=== PATIENT | female | born 1945 | race Caucasian/White ===

== ENCOUNTER → 2021-05-11 10:04 | Outpatient (BNVA) | payer MEDICARE, SELFPAY | PROVIDERS: PCP Internal Medicine; Visit Provider Nurse Practitioner Family | DX: R25.1 Tremor, unspecified (principal); G47.33 Obstructive sleep apnea (adult) (pediatric) | CPT/HCPCS: 99212 ==

== ENCOUNTER → 2021-11-09 10:57 | Outpatient (BNVA) | payer MEDICARE, SELFPAY | PROVIDERS: PCP Internal Medicine; Visit Provider Nurse Practitioner Family | DX: G47.33 Obstructive sleep apnea (adult) (pediatric) (principal); R25.1 Tremor, unspecified; Z79.899 Other long term (current) drug therapy; Z99.89 Dependence on other enabling machines and devices | CPT/HCPCS: 99212 ==

== ENCOUNTER → 2022-04-14 09:27 | Outpatient (BNVA) | payer MEDICARE, SELFPAY | PROVIDERS: PCP Internal Medicine; Visit Provider Nurse Practitioner Family | DX: R25.1 Tremor, unspecified (principal); G47.33 Obstructive sleep apnea (adult) (pediatric) | CPT/HCPCS: 99212 ==

== ENCOUNTER → 2022-07-26 09:34 | Outpatient (BNVA) | payer MEDICARE, SELFPAY | PROVIDERS: PCP Internal Medicine; Visit Provider Nurse Practitioner Family | DX: G47.33 Obstructive sleep apnea (adult) (pediatric) (principal); R25.1 Tremor, unspecified | CPT/HCPCS: 99212 ==

== ENCOUNTER 2022-11-09 09:40 | Outpatient (AMB) | payer MEDICARE, SELFPAY ==
[2022-11-09 09:43] VITALS: BP 138/70; PULSE 88; O2SAT 94; BMI 29.8
--- NOTE | 2022-11-09 09:43 | A.OFFVIS_ITS ---
Intake Vital Signs 11/09/22 09:43 Height 5 ft 2 in Weight 163 lb BMI 29.8 BP 138/70 Blood Pressure Location Rt brachial Position Sitting Pulse 88 Pulse Source Pulse Oximeter Pulse Oximetry (%) 94 Oxygen Delivery Method Room Air Intake Visit Reasons: 4m tremor/KWADWO - Confirmed Intake Note: Pt presents as a 4 month f/u tremor/kwadwo. pt states she has questions about medications. 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 Allergies erythromycin base [From Erythrocin] Allergy (Mild, Verified 11/09/22 09:45) Rash nickel Allergy (Unknown, Verified 11/09/22 09:45) Rash bupropion [From Wellbutrin] Adverse Reaction (Mild, Verified 11/09/22 09:45) lip swelling Medication List - Last Reconciled 11/09/22 by ROLA Tapia carbidopa-levodopa 25-100 mg 2 tabs PO TID estradiol 0.01%(0.1mg/gram) grams vaginal losartan 100 mg PO DAILY multivitamin 1 tab PO DAILY paroxetine HCl 40 mg PO DAILY primidone 150 mg (3 x 50 mg) PO BID 90 days ropinirole 0.25 mg PO TID 30 days simvastatin 40 mg PO BEDTIME sitagliptin phos-metformin 50-1,000 mg (Janumet) 1 tab PO BID valacyclovir 500 mg PO BID PRN vitamin B complex 1 tab PO DAILY HPI HPI Comments History of Present Illness Details 77-yr-old female presents for f/u visit. Pt denies any significant interval medical history changes. Pt reports that she was scheduled for DBS in Sep, however this has been put on hold after she had a consult w/ Dr Herve Mitchell at [facility]. She states he suspects she may have early signs of PD, and thus started her on CD-LD in addition to her usual doses of Ropinirole and Primidone. She started w/ CD-LD 25-100mg 1/2 tab tid and has increased to 1.5 tabs tid, she will increase to 2 tabs TID tomorrow. She states on CD-LD, she is a bit better- in terms of tremor. However, she has had some orthostatic lightheadedness and increased daytime sleepiness. She can fall asleep whenever inactive. She has been complaint w/ her CPAP, with usage > 4hrs at 97%, average hrs [id number] 28min, residual AHI 0.3/hr. [facility] Medical History Anxiety Depression Diabetes HTN (hypertension) Kidney stones Surgical History H/O: hysterectomy Family History Father Diabetes Mother Heart disease Social History (Updated 11/09/22 @ 09:48 by Liz Jones CMA) Alcohol intake: never Patient Tobacco Use Status: Never used Tobacco Review of Systems Const All systems reviewed & are unremarkable except as noted in HPI and below Physical Exam Vital Signs: Last Vital Signs Pulse 88 11/09/22 09:43 BP 138/70 11/09/22 09:43 Pulse Ox 94 11/09/22 09:43 Oxygen Delivery Method Room Air 11/09/22 09:43 BMI result Body Mass Index 29.8 Const General: cooperative and no acute distress Resp Effort & Inspection: normal respiratory effort and able to speak in complete sentences Neuro Other: Cognition: A&O x's 3 Expression: Intact Voice: Soft, tremor Tremor: RUE rest tremor, BUE R > L postural and kinetic tremor Tone: None Dyskinesia: None FFM: Ok Foot taps: Slightly decreased on right Gait: Decreased right arm swing, stride ok, steady gait Psych: Pleasant, cooperative Assessment & Plan Assessment & Plan (1) Obstructive sleep apnea: Code(s): G47.33 - Obstructive sleep apnea (adult) (pediatric) (2) Tremor: Comment: voice and BUE tremor. Code(s): R25.1 - Tremor, unspecified Plan For tremor: Call placed to Dr Herve Mitchell at [facility]- to discuss trying to reduce Ropinirole dose in hopes this offsets increased daytime sleepiness despite optimal CPAP use- awaiting call back. For now- Continue CD-LD per Dr Mitchell. Continue Ropinirole 0.25mg tid. Continue Primidone 50mg- 3 tabs BID. Continue to use adaptive strategies: SteadyMouse, covered cups. For KWADWO: Continue CPAP 8 cmH2O nightly > 4 hours, as pt continues to have good reduction in residual AHI. Clean CPAP machine and supplies routinely. Change CPAP supplies routinely. Pt to contact us or respiratory company with any questions or concerns. f/u in 3 months or sooner prn Coding Level of Care Code Est Pt Level 4 (55738) Diagnoses Obstructive sleep apnea G47.33 Tremor R25.1
== END 2022-11-09 10:32 | disposition home or self-care (01) ==
PROVIDERS: Visit Provider Nurse Practitioner Family
DX: G47.33 Obstructive sleep apnea (adult) (pediatric) (principal); R25.1 Tremor, unspecified
CPT/HCPCS: 99214

== ENCOUNTER → 2022-11-09 09:40 | Outpatient (BNVA) | payer MEDICARE, SELFPAY | PROVIDERS: Visit Provider Nurse Practitioner Family | DX: G47.33 Obstructive sleep apnea (adult) (pediatric) (principal); R25.1 Tremor, unspecified | CPT/HCPCS: 99212 ==

== ENCOUNTER 2023-02-22 09:59 | Outpatient (AMB) | payer MEDICARE, SELFPAY ==
[2023-02-22 10:00] VITALS: BP 138/72; PULSE 85; O2SAT 96; BMI 29.9
--- NOTE | 2023-02-22 10:00 | MHC.OFFVIS ---
Intake Vital Signs 02/22/23 10:00 Height 5 ft 2 in Weight 163 lb 4 oz BMI 29.9 BP 138/72 Blood Pressure Location Lt brachial Position Sitting Pulse 85 Pulse Source Pulse Oximeter Pulse Oximetry (%) 96 Oxygen Delivery Method Room Air Intake Visit Reasons: 3m tremor/KWADWO - LVM Intake Note: Pt presents to the office today for a 3 month follow up for tremors and KWADWO. Allergies erythromycin base [From Erythrocin] Allergy (Mild, Verified 02/22/23 10:03) Rash nickel Allergy (Unknown, Verified 02/22/23 10:03) Rash bupropion [From Wellbutrin] Adverse Reaction (Mild, Verified 02/22/23 10:03) lip swelling Medication List - Last Reconciled 02/22/23 by ROLA Tapia estradiol 0.01%(0.1mg/gram) grams vaginal losartan 100 mg PO DAILY multivitamin 1 tab PO DAILY paroxetine HCl 40 mg PO DAILY primidone 150 mg (3 x 50 mg) PO BID 90 days ropinirole 0.25 mg PO TID 30 days simvastatin 40 mg PO BEDTIME sitagliptin phos-metformin 50-1,000 mg (Janumet) 1 tab PO BID valacyclovir 500 mg PO BID PRN vitamin B complex 1 tab PO DAILY HPI HPI Comments History of Present Illness Details 77-yr-old female presents for f/u visit to discuss her upcoming planned DBS procedure at [facility]. Pt denies any significant interval medical history changes. She is scheduled for DBS at [facility] on 04/10/23, then f/u procedure on 04/29/23 be at [facility]. Pt was weaned off CD-LD [address] Mitchell- states was not effective and did cause some GI upset. She is compliant w/ Ropinirole 0.25mg tid- hoping to be able to stop at some point- as it makes her sleepy at times. 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 Her tremor is more bothersome- having more difficulty with tremor, such as doing her activities and using her computer mouse. Her voice can be softer and tremor- more so at end of the day, can be frustrating and make her sad as her is hard of hearing. She is doing the [employer] Parkinson's class, which is helping her balance. Using her CPAP nightly. However, a friend of hers had a DBC complication which was thought to be d/t her PAP mask rubbing against her anatoliy holes, thus pt has request a new CPAP mask to wear following her DBS. Last night her PAP water reservoir ran dry. [facility] Medical History Kidney stones Anxiety Depression Diabetes HTN (hypertension) Surgical History H/O: hysterectomy Family History Father Diabetes Mother Heart disease Social History Alcohol intake: never Patient Tobacco Use Status: Never used Tobacco Review of Systems Const All systems reviewed & are unremarkable except as noted in HPI and below Physical Exam Vital Signs: Last Vital Signs Pulse 85 02/22/23 10:00 BP 138/72 02/22/23 10:00 Pulse Ox 96 02/22/23 10:00 Oxygen Delivery Method Room Air 02/22/23 10:00 BMI result Body Mass Index 29.9 Const General: cooperative and no acute distress Resp Effort & Inspection: normal respiratory effort and able to speak in complete sentences Neuro Other: Cognition: A&O x's 3 Expression: Intact Voice: Soft, tremor Tremor: BUE R > L rest tremor, BUE R > L postural and kinetic tremor Tone: None Dyskinesia: None FFM: Slightly decreased Foot taps: Slightly decreased on right Gait: Decreased right arm swing, stride ok, steady gait Psych: Pleasant, cooperative Assessment & Plan Assessment & Plan (1) Tremor: Comment: voice and BUE tremor. Code(s): R25.1 - Tremor, unspecified (2) Parkinsonism: Code(s): G20.C - Parkinsonism, unspecified (3) Obstructive sleep apnea: Code(s): G47.33 - Obstructive sleep apnea (adult) (pediatric) Plan For tremor: DBS placement through [facility] as scheduled- initial programming to be done at [facility]. Continue Ropinirole 0.25mg tid. Continue Primidone 50mg- 3 tabs BID. Continue to use adaptive strategies: SteadyMouse, covered cups. For KWADWO: Concur with making sure her PAP straps do not rest along her DBS incisions/anatoliy hole sites. Continue CPAP 8 cmH2O nightly > 4 hours. Try to reduce humidification setting- so water does not fully evaporate. Clean CPAP machine and supplies routinely. Change CPAP supplies routinely. Pt to contact us or respiratory company with any questions or concerns. f/u in May following her DBS procedure, or sooner prn Coding Level of Care Code Est Pt Level 4 (00899) Diagnoses Tremor R25.1 Parkinsonism G20.C Obstructive sleep apnea G47.33
== END 2023-02-22 10:49 | disposition home or self-care (01) ==
PROVIDERS: PCP Internal Medicine; Visit Provider Nurse Practitioner Family
DX: G20.C Parkinsonism, unspecified (principal); G47.33 Obstructive sleep apnea (adult) (pediatric)
CPT/HCPCS: 99214

== ENCOUNTER → 2023-02-22 09:59 | Outpatient (BNVA) | payer MEDICARE, SELFPAY | PROVIDERS: PCP Internal Medicine; Visit Provider Nurse Practitioner Family | DX: R25.1 Tremor, unspecified (principal); G47.33 Obstructive sleep apnea (adult) (pediatric) | CPT/HCPCS: 99212 ==

== ENCOUNTER 2023-06-19 09:55 | Outpatient (AMB) | payer MEDICARE, SELFPAY ==
--- NOTE | 2023-06-19 10:10 | A.OFFVIS_ITS ---
Intake Vital Signs 06/19/23 10:11 Height 5 ft 2 in Weight 160 lb BMI 29.3 BP 128/72 Blood Pressure Location Rt brachial Pulse 84 Pulse Source Pulse Oximeter Pulse Oximetry (%) 96 Oxygen Delivery Method Room Air Intake Visit Reasons: 4 mo f/u - Tremors-Conf Intake Note: Patient presents for 4 month follow up tremors, patient tremors are better. Allergies erythromycin base [From Erythrocin] Allergy (Mild, Verified 06/19/23 10:13) Rash nickel Allergy (Unknown, Verified 06/19/23 10:13) Rash bupropion [From Wellbutrin] Adverse Reaction (Mild, Verified 06/19/23 10:13) lip swelling Medication List - Last Reconciled 07/08/23 by ROLA Tapia estradiol 0.01%(0.1mg/gram) grams vaginal losartan 100 mg PO DAILY multivitamin 1 tab PO DAILY paroxetine HCl 40 mg PO DAILY primidone 50 mg PO BID ropinirole 0.25 mg PO TID 30 days simvastatin 40 mg PO BEDTIME sitagliptin phos-metformin 50-1,000 mg (Janumet) 1 tab PO BID valacyclovir 500 mg PO BID PRN vitamin B complex 1 tab PO DAILY HPI HPI Comments History of Present Illness Details 77-yr-old female presents for f/u visit. Pt underwent august DBS w/ right battery placement for ET. Since she has had right posterior head discomfort where the lead transverses down her head. The right hand tremor is well-controlled, still has left hand tremor. She does feel her voice has improved- does not think she needs to continue Botox. She also feels her coordination is completely off . She is having difficulty picking up a plate and putting it in the patient service associate- missing the slot. She is feeling more off-balance. She has had 3 falls in the last few weeks. 2 falls were at her PD exercise class- 1 fall, her legs were just too weak. The other fall, she was holding the wall and just lost her balance doing a leg exercise. One fall was at home, was bending over to pour water into her CPAP reservoir, when she lost her balance and fell over. These types of falls were not happening prior to the surgery. Sometimes her right knee will feel like it will give out. The falls tend to go to the right. She denies dizziness or lightheadedness. She denies diplopia, slurred speech or numbness, pins and needles, or back pain. She initially could not use her CPAP, but has recently been able to resume it. Her primidone has been decreased by 2 tabs to 1 tab bid.. She did see her PCP- who advised her to have CT, carotid US, use a cane at all times, and start PT for fall training. She has an appt this week for f/u DBS adjustment. [facility] Medical History Kidney stones Anxiety Depression Diabetes HTN (hypertension) Surgical History H/O: hysterectomy Family History Father Diabetes Mother Heart disease Social History Alcohol intake: never Patient Tobacco Use Status: Never used Tobacco Review of Systems Const All systems reviewed & are unremarkable except as noted in HPI and below Physical Exam Vital Signs: Last Vital Signs Pulse 84 06/19/23 10:11 BP 128/72 06/19/23 10:11 Pulse Ox 96 06/19/23 10:11 Oxygen Delivery Method Room Air 06/19/23 10:11 BMI result Body Mass Index 29.3 Const General: cooperative and no acute distress Resp Effort & Inspection: normal respiratory effort and able to speak in complete sentences Neuro Other: Cognition: A&O x's 3 Expression: Intact Voice: Soft, tremor Tremor: LUE mild postural and kinetic tremor Finger-Nose- pt-examiner- mild dysmetria on right, better on left BUE PAGE: decreased fluidity, more so on left Tone: None Dyskinesia: None FFM: Slightly decreased, more so on left Foot taps: Slightly decreased, more so on left Romberg: mild sway Tandem- cannot do w/o holding onto counter Gait: Slow to stand, decreased left arm swing, steps are shorter,mild right high step, unsteady during turning. Psych: Pleasant, cooperative Assessment & Plan Assessment & Plan (1) Tremor: Comment: voice and BUE tremor. Code(s): R25.1 - Tremor, unspecified (2) Parkinsonism: Code(s): G20.C - Parkinsonism, unspecified (3) Status post deep brain stimulator placement: Comment: Implanted at [facility] 2023 Code(s): Z96.89 - Presence of other specified functional implants (4) Difficulty balancing: Code(s): R29.818 - Other symptoms and signs involving the nervous system Plan For gait/balance difficulties: Concur w/ head CT and carotid US. Start PT as ordered. Use cane consistently. Discussed strategies to turn slowly, take several small steps to turn. Advised her to update [facility]/DBS clinic w/ gait/balance difficulties For tremor: F/u DBS programming as scheduled. Continue Ropinirole 0.25mg tid. Continue reduced dose of Primidone 50mg- 1 tab BID. Continue to use adaptive strategies: SteadyMouse, covered cups. ? For KWADWO: Continue CPAP 8 cmH2O nightly > 4 hours. Clean CPAP machine and supplies routinely. Change CPAP supplies routinely. Pt to contact us or respiratory company with any questions or concerns. ? f/u in 4 months or sooner prn Coding Level of Care Code Est Pt Level 4 (97726) Diagnoses Tremor R25.1 Parkinsonism G20.C Status post deep brain stimulator placement Z96.89 Difficulty balancing R29.818
[2023-06-19 10:11] VITALS: BP 128/72; PULSE 84; O2SAT 96; BMI 29.3
== END 2023-06-19 11:05 | disposition home or self-care (01) ==
PROVIDERS: PCP Internal Medicine; Visit Provider Nurse Practitioner Family
DX: G20.C Parkinsonism, unspecified (principal); Z96.82 Presence of neurostimulator; R26.81 Unsteadiness on feet
CPT/HCPCS: 99214

== ENCOUNTER → 2023-06-19 09:55 | Outpatient (BNVA) | payer MEDICARE, SELFPAY | PROVIDERS: PCP Internal Medicine; Visit Provider Nurse Practitioner Family | DX: G20.C Parkinsonism, unspecified (principal); R29.818 Other symptoms and signs involving the nervous system; Z91.81 History of falling; Z96.89 Presence of other specified functional implants; Z79.899 Other long term (current) drug therapy | CPT/HCPCS: 99212 ==

== ENCOUNTER 2023-11-15 11:35 | Outpatient (AMB) | payer MEDICARE, SELFPAY ==
--- NOTE | 2023-11-15 11:37 | A.OFFVIS_ITS ---
Vital Signs 11/15/23 11:41 Height 5 ft 2 in Weight 155 lb BMI 28.3 BP 138/70 Blood Pressure Location Rt brachial Position Sitting Pulse 96 Pulse Source Pulse Oximeter Pulse Oximetry (%) 97 Oxygen Delivery Method Room Air Intake Visit Reasons: Follow up Tremors-CONF Intake Note: Patient presents for follow up tremors Allergies erythromycin base [From Erythrocin] Allergy (Mild, Verified 11/15/23 11:42) Rash nickel Allergy (Unknown, Verified 11/15/23 11:42) Rash bupropion [From Wellbutrin] Adverse Reaction (Mild, Verified 11/15/23 11:42) lip swelling HPI Comments Details: 78-yr-old female presents for f/u visit. Pt denies any significant interval medical history changes. Pt's primary concerns are: she has had increased falls. Once the fall was caused by turning her upper body to reach the light switch while standing in her bathroom. Other times, she has fallen on uneven surfaces, even when standing still, she can just fall. She notes that she is prone to cating/tripping in right foot- notices more wearing of right shoes. Trying to be conscious to lift Right foot up when walking. She denies any falls a/w lightheadedness, LOC, or dizziness. Denies LE numbness/tingling, back pain. She did complete PT. She is doing a PD exercise program 2 x's per week, at the [facility]. She is now using a cane which is helping. Her sister has been falling more as well. Her mother was not prone to falls- but did exercise regularly. She had f/u in [place] earlier this week, they do not feel the DBS is contributing to her falls. She is scheduled to have DBS settings increased in near future. Her tremor is better controlled. The right hand barely tremors, the left hand may shake- has more difficulty holding onto her carole w/ the left hand. Her voice is stronger- less tremor. She believes she stopped the Ropinirole. She did wean off the Primidone. She is holding her Botox tx for voice tremor for now. She has had a decreased appetite recently- has lsot 15 lbs in the last 2 months. Was started on Trulicity last week- her recent HgA1C was 8.8% and was not feeling well, more fatigued. She is using her CPAP nightly, but not sleeping as well. Some difficulty falling asleep and maintaining sleep. [facility] Medical History Kidney stones Anxiety Depression Diabetes HTN (hypertension) Surgical History H/O: hysterectomy Family History Father Diabetes Mother Heart disease Social History Alcohol intake: never Patient Tobacco Use Status: Never used Tobacco Review of Systems Const All systems reviewed & are unremarkable except as noted in HPI and below Physical Exam Vital Signs: Last Vital Signs Pulse 96 11/15/23 11:41 BP 138/70 11/15/23 11:41 Pulse Ox 97 11/15/23 11:41 Oxygen Delivery Method Room Air 11/15/23 11:41 BMI result Body Mass Index 28.3 Const General: cooperative and no acute distress Resp Effort & Inspection: normal respiratory effort and able to speak in complete sentences Neuro Other: Cognition: A&O x's 3 Expression: Intact Voice: Stronger, no audible tremor today Tremor: LUE mild postural tremor Tone: None Dyskinesia: None FFM: Slightly decreased, more so on left Foot taps: Slightly decreased, more so on left MS: RLE 5-/5, LLE 5/5 Gait: Slow to stand, decreased left arm swing, steps are shorter, more noticeable right high step, unsteady during turning w/o cane, steadier w/ cane. Psych: Pleasant, cooperative Deep tendon reflexes (DTR's): Right patellar reflex intensity grade: 3+ and Left patellar reflex intensity grade: 2+ Assessment & Plan Assessment & Plan (1) Tremor: Comment: voice and BUE tremor. Code(s): R25.1 - Tremor, unspecified Category: Medical (2) Parkinsonism: Code(s): G20.C - Parkinsonism, unspecified Category: Medical (3) Repeated falls: Code(s): R29.6 - Repeated falls Category: Medical (4) Obstructive sleep apnea: Code(s): G47.33 - Obstructive sleep apnea (adult) (pediatric) Category: Medical Plan For gait/balance difficulties: Continue local PD exercise classes Use cane consistently. Again discussed strategies to turn slowly, take several small steps to turn. Offered to check RLE EMG/NCS, referal to air conditioning engineer for eval for RLE AFO- pt declines at this time. Will call us if falls do not improve w/ above strategies. ? For tremor: F/u DBS programming as scheduled. Pt believes she has stopped Ropinirole 0.25mg tid. Continue to hold Primidone 50mg- 1 tab BID. Continue to use adaptive strategies: SteadyMouse, covered cups. ? For KWADWO: Unable to access pt's PAP compliance report. Will request PAP device be reconnected to our [employer] account. Continue CPAP 8 cmH2O nightly > 4 hours. Clean CPAP machine and supplies routinely. Change CPAP supplies routinely. Pt to contact us or respiratory company with any questions or concerns. ? f/u in 6 months or sooner prn Coding Level of Care Code Est Pt Level 4 (52239) Diagnoses Tremor R25.1 Parkinsonism G20.C Repeated falls R29.6 Obstructive sleep apnea G47.33
[2023-11-15 11:41] VITALS: BP 138/70; PULSE 96; O2SAT 97; BMI 28.3
== END 2023-11-15 12:15 | disposition home or self-care (01) ==
PROVIDERS: PCP Internal Medicine; Visit Provider Nurse Practitioner Family
DX: G20.C Parkinsonism, unspecified (principal); R29.6 Repeated falls; G47.33 Obstructive sleep apnea (adult) (pediatric)
CPT/HCPCS: 99214

== ENCOUNTER → 2023-11-15 11:35 | Outpatient (BNVA) | payer MEDICARE, SELFPAY | PROVIDERS: PCP Internal Medicine; Visit Provider Nurse Practitioner Family | DX: G20.C Parkinsonism, unspecified (principal); R29.6 Repeated falls; G47.33 Obstructive sleep apnea (adult) (pediatric) | CPT/HCPCS: 99212 ==